=== PATIENT | male | born 1955 | race Caucasian/White ===

== ENCOUNTER 2018-03-04 10:50 | Emergency (ER) | payer OTHER ==
[~2018-03-04] VITALS: Ht 195.6 cm; Wt 115.7 kg
--- NOTE | 2018-03-04 12:03 | RADIOLOGY REPORT ---
EXAMINATION: XR FOOT, LEFT CLINICAL INFORMATION: Trauma to foot COMPARISON: None TECHNIQUE: Left foot, 3 views FINDINGS: Alignment is normal. No acute fracture or subluxation. The metatarsals are intact. 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 No radiopaque foreign bodies. Subtle lucency in superficial soft tissues dorsal to the metatarsals (observed on lateral view) likely corresponds to site of trauma. Correlate for presence of wound/laceration in this area. IMPRESSION: No acute osseous injury in the left foot.
--- NOTE | 2018-03-04 13:13 | ED ANKLE/FOOT INJURY COMPLAINT ---
History of Present Illness General Chief Complaint: Laceration Procedure Stated Complaint: SENT IN BY MD STAHL FOR LACTO L FT Source: patient Exam Limitations: no limitations Vital Signs & Intake/Output Vital Signs & Intake/Output Vital Signs Date Time Temp Pulse Resp B/P B/P Pulse O2 O2 Flow FiO2 Mean Ox Delivery Rate 03/04 1328 98.0 75 18 121/85 97 Room Air 03/04 1101 98.5 83 15 139/92 97 Room Air Room Air ED Intake and Output 03/05 0000 03/04 1200 Intake Total Output Total Balance Patient 255 lb Weight Weight Reported by Patient Measurement Method Allergies Coded Allergies: amoxicillin (Intermediate, HIVES 03/04/18) Triage Note: PT SENT TO ED BY DR. STAHL FOR LAC TO L DORSAL PART OF FOOT S/P DROPPING VICE ON FOOT. PT GIVEN TETANUS SHOT AT PRIMARY. +SWELLING AND ?DEFORMITY NOTED TO FOOT, BUT DIFFICULT TO TELL DUE TO SWELLING. DECLINED OFFER OF PAIN MEDS IN TRIAGE. Triage Nurses Notes Reviewed? yes Occurred: just prior to arrival Duration: hour(s): (2), constant, continues in ED Timing: single episode today Severity: mild, moderate Severity Numbers: 6 Pain/Injury Location: Left: Foot. Method of Injury: direct blow No Modifying Factors: none Modifying Factors: Worsens With: movement. HPI: 63-year-old male with no past medical history of dementia evaluation after dropping a vice on his left foot. Patient states that this occurred about 2 hours prior to presentation. He reports that he is able to walk but it is painful. He notes that there is a superficial laceration over the dorsum of the foot that did bleed significant weight. No blood thinners. He went to his primary care doctor's office who sent him in the ER for x-rays. Tetanus status up-to-date. He denies any ankle pain numbness or tingling. He is not taking any medicine for pain. Reports his pain as a 6 out of 10. (Franky BRANNON,Ian) Past History Travel History Traveled to [place] past 21 day No Medical History Any Pertinent Medical History? see below for history Neurological: NONE EENT: NONE Cardiovascular: NONE Respiratory: NONE Gastrointestinal: NONE Hepatic: NONE Renal: NONE Musculoskeletal: NONE Psychiatric: NONE Endocrine: NONE Blood Disorders: NONE Cancer(s): NONE SALES CONSULTANT RESIDENTIAL MANAGER/Reproductive: NONE Surgical History Surgical History: non-contributory Psychosocial History What is your primary language Polish Tobacco Use: Never used ETOH Use: occasional use Illicit Drug Use: denies illicit drug use Family History Hx Contributory? No (Ian Randall) Review of Systems Review of Systems Constitutional: Reports: no symptoms. EENTM: Reports: no symptoms. Respiratory: Reports: no symptoms. Cardiovascular: Reports: no symptoms. GI: Reports: no symptoms. Genitourinary: Reports: no symptoms. Musculoskeletal: Reports: see HPI, joint pain, joint swelling. Skin: Reports: see HPI (laceration). Neurological/Psychological: Reports: no symptoms. Hematologic/Endocrine: Reports: no symptoms. Immunologic/Allergic: Reports: no symptoms. All Other Systems: Reviewed and Negative (Ian Randall) Physical Exam Physical Exam General Appearance: well developed/nourished, no apparent distress, alert, awake Head: atraumatic, normal appearance Eyes: Bilateral: normal appearance, PERRL, EOMI. Ears, Nose, Throat: hearing grossly normal Neck: normal inspection, supple, full range of motion Cardiovascular/Respiratory: no respiratory distress Leg/Knee/Thigh Left: normal range of motion, normal inspection Leg/Knee/Thigh Right: normal range of motion, normal inspection Ankle Left: normal inspection, normal range of motion Ankle Right: normal inspection, normal range of motion Foot Left: there is soft tissue swelling of the dorsum of the foot. There is a superficial 1 cm linear laceration of the dorsum of the foot. No separate anus tissue. Full range of motion of the foot and ankle is intact. Neurovascular supply intact. No gross deformity Foot Right: normal inspection, normal range of motion Neuro/Vascular: normal motor function, normal sensation Tendon: normal tendon function Psychiatric: awake, alert, oriented x 3 Skin: intact, normal color, warm/dry (Ian Rnadall) Progress Differential Diagnosis: fracture, dislocation, sprain, contusion, compartmental syndrome Plan of Care: Patient is here after dropping a vice on his left foot. He does have a superficial laceration over the dorsum of the foot. Neurovascular supply is intact. Leading is controlled. X-rays are negative for fracture patient is able to walk. The laceration was cleaned with Betadine. Steri-Strips and glue were used to approximate the wound. Advised rest ice elevation compression. Tylenol or Profen for pain patient declined pain medication here. Tetanus was updated. Discussed return precautions in detail patient agrees the plan Diagnostic Imaging: Viewed by Me: Radiology Read. Discussed w/RAD: Radiology Read. Radiology Impression: PATIENT: JOI TORRES PRESENT AGE: 63 PATIENT ACCOUNT NO: [id number] : 57 LOCATION: [facility] ORDERING PHYSICIAN: Georges Ponce DO (TBS) SERVICE DATE: 03/04/18 EXAM TYPE: RAD - XRY-FOOT COMPLETE, LEFT EXAMINATION: XR FOOT, LEFT CLINICAL INFORMATION: Trauma to foot COMPARISON: None TECHNIQUE: Left foot, 3 views FINDINGS: Alignment is normal. No acute fracture or subluxation. The metatarsals are intact. 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 No radiopaque foreign bodies. Subtle lucency in superficial soft tissues dorsal to the metatarsals (observed on lateral view) likely corresponds to site of trauma. Correlate for presence of wound/laceration in this area. IMPRESSION: No acute osseous injury in the left foot. DICTATED BY: Fernando Shelton MD DATE/TIME DICTATED:03/04/181156 BUSINESS OPERATIONS MANAGER:MIKE DATE/TIME TRANSCRIBED:1156 CONFIDENTIAL, DO NOT COPY WITHOUT APPROPRIATE AUTHORIZATION. < Electronically signed in Other Vendor System> SIGNED BY: Fernando Shelton MD 03/04/18 1203 (Ian Randall) Departure Departure Disposition: HOME OR SELF CARE Condition: Stable Clinical Impression Primary Impression: Foot laceration Qualifiers: Encounter type: initial encounter Laterality: left Qualified Code: S91.312A - Laceration without foreign body, left foot, initial encounter Referrals: Van Stahl MD (PCP/Family) Additional Instructions: REST APPLY ICE KEEP THE FOOT ELEVATED. CHANGE DRESSING DAILY. TYLENOL/IBUPROFEN FOR PAIN. THE STERI STRIP WILL COME OFF IN A FEW DAYS ON THEIR OWN. LOOK OUT FOR SIGNS OF INFECTION LIKE RENDESS SWELLING DISCHARGE OR PAIN. RETURN WITH ANY CONCENRS. Departure Forms: Customer Survey General Discharge Information (Ian Randall) PA/REAGENT TENDER Co-Sign Statement Statement: ED Attending supervision documentation- x I saw and evaluated the patient. I have also reviewed all the pertinent lab results and diagnostic results. I agree with the findings and the plan of care as documented in the PA's/REAGENT TENDER's documentation. [] I have reviewed the ED Record and agree with the PA's/REAGENT TENDER's documentation. [] Additions or exceptions (if any) to the PAs/REAGENT TENDER's note and plan are summarized below: [] (Rose Marie BLUE,Ricardo)
[2018-03-04 13:28] VITALS: BP 121/85
== END 2018-03-04 13:34 ==
LOC: ERH 10:50
DX: S91.312A Laceration without foreign body, left foot, initial encounter (principal); W20.8XXA Other cause of strike by thrown, projected or falling object, initial encounter
CPT/HCPCS: 73630-LT